=== PATIENT | female | born 1985 | race African-American/Black ===

== ENCOUNTER → 2018-07-13 | Outpatient (CLI) | payer OTHER ==
[~2018-07-13] MED LIST: OXYMETAZOLINE 0.05% NASAL SPRAY 30ML BOTTLE. NS ONE; ZOLPIDEM 5 MG TABLET. PO ONE
--- NOTE | 2018-07-14 10:02 | SLEEP ---
DATE OF STUDY: 07/13/2018 ATTENDING PHYSICIAN: Katalina Colbert PA-C REFERRING PHYSICIAN: Wade Boogie M.D. The patient is 32 years old who weighs 165 pounds with a BMI of 29. The patient has been treated for narcolepsy. She had a prior out of state sleep study, which did not show any clinically significant sleep disorder breathing. The patient had mild GIOVANNA at an AHI of 9.8 per hour on the night prior to the MSLT and was not thought to be of much clinical significance in relation to the severity of her hypersomnia and has been treated with stimulant medications. However, the patient requested to be treated for her mild GIOVANNA, as a result she was referred back for CPAP titration study. During the night of study, the patient spent 401 minutes in bed and slept for 354 minutes with a sleep efficiency of 88%. Sleep latency was 16 minutes with a REM latency of 98 minutes. Overall, sleep architecture showed increased stage 1 and stage 2 sleep, normal N3 sleep and reduced REM sleep, which was 10% of the total sleep time. During the night of study, EKG monitoring revealed normal sinus rhythm. Average heart rate was 89 beats per minute, no sustained arrhythmias observed. Moderate PLMS were seen at index of 28 per hour and 5 per hour caused EEG arousals. The patient was started on CPAP at 5 cm water and titrated up to 7 cm water. At the final pressure, the patient slept for 204 minutes. The patient's AHI was reduced to only 4 per hour. The patient had supine as well as REM sleep. The patient's oxygen saturations remained above 96%. The patient used small size nasal pillows. IMPRESSION: 1. Mild sleep apnea diagnosed by previous sleep study. 2. Moderate PLMS. RECOMMENDATIONS: 1. CPAP at 7 cm water completely eliminated the patient's sleep apnea, should be used on a nightly basis. 2. Follow up in 4-6 weeks to assess compliance with CPAP and to document clinical improvement. 3. Avoid [employer] depressants. 4. PLMS does not need to be treated unless the patient has symptoms of restless legs during the day. WADE BOOGIE MD DR: AUSTEN/robel JOB#: [id number] / [id number] [place]
== END | disposition home or self-care (01) ==
LOC: RT 19:05
PROVIDERS: ATTEND Internal Medicine Critical Care Medicine
DX: G47.33 Obstructive sleep apnea (adult) (pediatric) (principal); G47.61 Periodic limb movement disorder
CPT/HCPCS: 95811